=== PATIENT | female | born 2000 | race Caucasian/White ===

== ENCOUNTER 2023-08-25 23:51 | Inpatient (IN) | payer OTHER ==
[~2023-08-25] VITALS: Ht 167.6 cm; Wt 65.3 kg
[2023-08-26 00:41] LABS: BASOPHILS % 0.2 % (0.0-2.0); EOSINOPHILS % 0.1 % (0.0-5.0); HEMATOCRIT. 38.1 % (36.0-48.0); LYMPHOCYTES % 5.3 % (20.0-50.0); MEAN CORPUSCULAR HEMOGLOBIN 30.4 pg (28.0-32.0); MEAN CORPUSCULAR VOLUME 89.3 fL (81.0-99.0); MEAN PLATELET VOLUME 8.4 fl (7.4-10.4); MONOCYTES % 7.6 % (2.0-8.0); NEUTROPHILS % 86.8 % (40.0-76.0); PLATELET 165 x1000/uL (130-400); RED BLOOD CELL COUNT 4.27 mill/uL (4.2-5.4); RED CELL DISTRIBUTION WIDTH 12.7 % (11.6-14.6); WHITE BLOOD COUNT 5.7 x1000/uL (4.5-11.0)
[2023-08-26 00:42] LABS: DIFFERENTIAL COMMENT 1
[2023-08-26 00:56] LABS: ALANINE AMINOTRANSFERASE 16 IU/L (10-49); ALBUMIN 4.2 g/dL (3.2-4.8); ASPARTATE AMINOTRANSFERASE 22 IU/L (<34); BILIRUBIN TOTAL 2.5 mg/dL (0.1-1.0); CALCIUM 8.2 mg/dL (8.7-10.4); CARBON DIOXIDE 20 mEq/L (21-32); CHLORIDE 101 mEq/L (98-107); CREATININE 0.7 mg/dL (0.6-1.0); GLUCOSE 113 mg/dL (70-105); PROTEIN TOTAL 6.9 g/dL (6.0-8.3); SODIUM 132 mEq/L (136-145); UREA NITROGEN BLOOD 10 mg/dL (9-23)
[2023-08-26 02:19] LABS: CLARITY URINE CLOUDY (CLEAR); COLOR URINE YELLOW (YELLOW); GLUCOSE URINE NEGATIVE (NEGATIVE); KETONES URINE 2+ (NEGATIVE); LEUKOCYTE ESTERASE URINE 2+ (NEGATIVE); NITRITE URINE NEGATIVE (NEGATIVE); OCCULT BLOOD URINE 3+ (NEGATIVE); PROTEIN URINE 1+ (NEGATIVE); SPECIFIC GRAVITY URINE 1.022 (1.005-1.030)
[2023-08-26] MEDS ORDERED: CEFTRIAXONE 1GM PREMIX 50 ML IV ONE (03:15)
[2023-08-26] MEDS: SODIUM CHLORIDE 0.9% 1,000 ML IV ONE (03:15)
[2023-08-26 03:25] LABS: BACTERIA URINE 2+; SQUAMOUS EPITHELIAL CELL URINE 1+ /lpf (RARE/1+); WBC URINE TNTC /hpf (0-2)
[2023-08-26 04:06] LABS: TROPONIN I HIGH SENSITIVITY 6 ng/L (3.0-34)
[2023-08-26] MEDS: PANTOPRAZOLE SODIUM 40 MG/VIAL IV SCH (05:15)
[2023-08-26] MEDS ORDERED: ACETAMINOPHEN 650MG/20.3ML UDC GT PRN (05:15)
[2023-08-26] MEDS ORDERED: MAGNESIUM/ALUMINUM HYDROXIDE/SIMETHICONE 30ML UDC PO PRN (05:15)
[2023-08-26 05:52] LABS: INR 1.2
[2023-08-26 05:53] LABS: HCG SCREEN NEGATIVE
[2023-08-26] MEDS: CEFTRIAXONE 1GM PREMIX 50 ML IV SCH (06:00)
[2023-08-26] MEDS: AZITHROMYCIN 500 MG TABLET PO SCH (06:00)
[2023-08-26] MEDS: POTASSIUM CHLORIDE 20MEQ TABLET SR PO NR ×2 (06:00→14:00)
[2023-08-26] MEDS: ONDANSETRON HCL 4MG/2ML INJ IV PRN (06:07)
[2023-08-26 07:24] LABS: CREATINE KINASE 40 IU/L (34-145); PHOSPHORUS 3.9 mg/dL (2.5-4.9); TROPONIN I HIGH SENSITIVITY 5 ng/L (3.0-34)
[2023-08-26 07:29] LABS: CREATINE KINASE MB FRACTION < 0.0 ng/mL (0.5-3.6)
[2023-08-26 08:00] VITALS: BP 96/48; PULSE 80; RESP 20; TEMP 97.7
[2023-08-26] MEDS: SODIUM CHLORIDE 0.9% 1,000 ML IV SCH (08:15)
[2023-08-26 09:51] LABS: *AMPHETAMINES SCREEN URINE NEGATIVE (NEGATIVE); *BARBITURATES SCREEN URINE NEGATIVE (NEGATIVE); *BENZODIAZEPINES SCREEN URINE NEGATIVE (NEGATIVE); *COCAINE SCREEN URINE NEGATIVE (NEGATIVE); CANNABINOID URINE SCREEN NEGATIVE (NEGATIVE); ECSTASY MDMA SCREEN URINE NEGATIVE (NEGATIVE); METHADONE URINE SCREEN Neg (NEGATIVE); OPIATES URINE SCREEN NEGATIVE (NEGATIVE); PHENCYCLIDINE URINE SCREEN NEGATIVE (NEGATIVE)
[2023-08-26 10:08] LABS: CALCIUM 8.1 mg/dL (8.7-10.4); CARBON DIOXIDE 23 mEq/L (21-32); CHLORIDE 105 mEq/L (98-107); CREATININE 0.8 mg/dL (0.6-1.0); GLUCOSE 101 mg/dL (70-105); POTASSIUM 3.4 mEq/L (3.5-5.1); SODIUM 136 mEq/L (136-145); UREA NITROGEN BLOOD 8 mg/dL (9-23)
[2023-08-26 11:55] VITALS: BP 96/48; PULSE 80; RESP 20; TEMP 97.7
[2023-08-26 12:00] VITALS: BP 96/54; PULSE 83; RESP 20; TEMP 98.1
[2023-08-26] MEDS: MAGNESIUM 2 G PREMIX 50 ML IV NR (14:00)
[2023-08-26] MEDS ORDERED: IOHEXOL-350 100 ML BOTTLE ONE (15:13)
[2023-08-26 16:00] VITALS: BP 99/56; PULSE 64; RESP 20; TEMP 97.5
[2023-08-26 20:00] VITALS: BP 95/56; PULSE 78; RESP 17; TEMP 99.6
[2023-08-26 22:52] LABS: CREATINE KINASE 42 IU/L (34-145); TROPONIN I HIGH SENSITIVITY 5 ng/L (3.0-34)
[2023-08-26 23:00] LABS: CREATINE KINASE MB FRACTION < 0.0 ng/mL (0.5-3.6)
[2023-08-27] VITALS: BP 101/58; PULSE 65; RESP 20; TEMP 97.9
[2023-08-27 04:00] VITALS: BP 105/52; PULSE 70; RESP 18; TEMP 98.4
[2023-08-27 07:25] LABS: HEMATOCRIT. 35.5 % (36.0-48.0); HEMOGLOBIN. 12.1 g/dL (12.0-16.0); MEAN CORPUSCULAR HEMOGLOBIN 30.5 pg (28.0-32.0); MEAN CORPUSCULAR HGB CONC 34.2 g/dL (31.0-37.0); MEAN CORPUSCULAR VOLUME 89.2 fL (81.0-99.0); MEAN PLATELET VOLUME 9.2 fl (7.4-10.4); PLATELET 144 x1000/uL (130-400); RED BLOOD CELL COUNT 3.98 mill/uL (4.2-5.4)
[2023-08-27 07:26] LABS: THYROID STIMULATING HORMONE 2.63 uIU/mL (0.55-4.78)
[2023-08-27 07:49] LABS: DIFFERENTIAL COMMENT 1
[2023-08-27 08:00] VITALS: BP 105/60; PULSE 60; RESP 20; TEMP 97.9
[2023-08-27] MEDS: POTASSIUM CHLORIDE 20MEQ TABLET SR PO NR (08:28)
[2023-08-27 12:00] VITALS: BP 103/57; PULSE 60; RESP 20; TEMP 98.1
[2023-08-27 16:00] VITALS: BP 106/56; PULSE 56; RESP 20; TEMP 98.1
[2023-08-27 16:36] LABS: PLATELET ESTIMATE NORMAL
[2023-08-27 21:00] VITALS: BP 103/69; PULSE 72; RESP 18; TEMP 98.1
[2023-08-28] VITALS: BP 103/67; PULSE 69; RESP 18; TEMP 97.9
[2023-08-28 04:00] VITALS: BP 105/64; PULSE 68; RESP 18; TEMP 97.7
[2023-08-28 07:35] LABS: HEMATOCRIT 36.8 % (36.0-48.0); HEMOGLOBIN 12.5 g/dL (12.0-16.0); MEAN CORPUSCULAR HEMOGLOBIN 30.3 pg (28.0-32.0); MEAN CORPUSCULAR HGB CONC 34.1 g/dL (31.0-37.0); MEAN CORPUSCULAR VOLUME 88.8 fL (81.0-99.0); PLATELET 155 x1000/uL (130-400); RED BLOOD CELL COUNT 4.14 mill/uL (4.2-5.4); RED CELL DISTRIBUTION WIDTH 12.7 % (11.6-14.6); WHITE BLOOD COUNT 2.7 x1000/uL (4.5-11.0)
[2023-08-28 07:54] LABS: CALCIUM 8.8 mg/dL (8.7-10.4); CARBON DIOXIDE 26 mEq/L (21-32); CHLORIDE 107 mEq/L (98-107); CREATININE 0.7 mg/dL (0.6-1.0); GLUCOSE 86 mg/dL (70-105); POTASSIUM 3.3 mEq/L (3.5-5.1); SODIUM 141 mEq/L (136-145)
[2023-08-28 07:55] LABS: UREA NITROGEN BLOOD < 5 mg/dL (9-23)
[2023-08-28 08:00] VITALS: BP 102/21; PULSE 67; RESP 18; TEMP 97.7
[2023-08-28] MEDS ORDERED: CEPH500C2 MT (08:32)
[2023-08-28 10:03] VITALS: BP 102/71; PULSE 67; TEMP 97.7; O2SAT 100
[2023-08-31 13:07] LABS: FECAL FAT NEUTRAL. Normal (.); FECAL FAT TOTAL. Normal (.)
== END 2023-08-28 10:21 | disposition home or self-care (01) | DRG 872 ==
LOC: ER 23:51 → 6EST 08-26 05:55 → EDBEDREQSVC 08-26 07:10
PROVIDERS: ADMIT Internal Medicine; ATTEND Internal Medicine
DX: A41.9 Sepsis, unspecified organism (principal); E87.1 Hypo-osmolality and hyponatremia; N39.0 Urinary tract infection, site not specified; N94.6 Dysmenorrhea, unspecified; E78.5 Hyperlipidemia, unspecified; E87.6 Hypokalemia; E86.0 Dehydration; K52.9 Noninfective gastroenteritis and colitis, unspecified; K82.8 Other specified diseases of gallbladder; Z79.899 Other long term (current) drug therapy
CPT/HCPCS: 36415; 71045; 74178; 76705; 80048; 80053; 80061; 80305; 81003; 82150; 82550; 82553; 82705; 83605; 83735; 84100; 84145; 84443; 84484; 84703; 85025; 85027; 85379; 87177; 87209; 89055; 99291; C9113; J0696; J2405; J3475; J7030; Q9967